=== PATIENT | female | born 2000 | race Two or more races ===

== ENCOUNTER 2023-11-03 12:46 | Outpatient (AMB) | payer MEDICAID, SELFPAY ==
--- NOTE | 2023-11-03 12:49 | MHC.OFFVIS ---
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 Patient reports she noticed this cyst in the beginning of this year. She said it was once a big sack of liquid but every time she hit it she says it went down in size so she thinks it has popped an just continues to come back. Tingling and pain if she is working and accidentally bumps the cyst, some days the tingling radiates to her finger tips and some days she says it radiates into her wrist. She says if she over uses the right hand or moves certain ways she may occasionally have discomfort. Denies past medical treatment to wrist. 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 The patient reports that this cyst fluctuates in size considerably, and also causes her significant discomfort in her right wrist. The patient reports that she has had ultrasound and MRI performed on the mass, and these have revealed that this is a ganglion cyst. Denies any surrounding erythema or ecchymosis. The patient states that she would like to have surgery to have this mass removed. Patient also reports that she does have occasional numbness and tingling in her right hand that is intermittent, not daily, and worse at night. No other acute complaints or concerns at this time. 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 Neuro: Normal sensation of the tips of all digits of the right hand at this time Good APB muscle belly firing and good finger cross Vascular: Cap refill brisk Pain: Patient reports no tenderness to palpation about the dorsal wrist ganglion ROM: Patient is able to make a closed fist and extend all digits of the right hand fully without difficulty Skin: No lacerations or abrasions. General: There is noted to be a small, approximately 1 cm in diameter mass noted on the dorsal aspect of the right wrist Non fluctuant to palpation No ecchymosis, erythema, or evidence of infection. Psych: Appears grossly normal Affect normal Attitude cooperative Assessment & Plan Assessment & Plan (1) Numbness and tingling of right hand: Code(s): R20.0 - Anesthesia of skin; R20.2 - Paresthesia of skin Category: Medical (2) Ganglion cyst of dorsum of right wrist: Code(s): M67.431 - Ganglion, right wrist Category: Medical Plan 1. Right wrist dorsal ganglion cyst Ongoing for approximately 2-3 years I educated the patient about the condition. I discussed both operative and nonoperative treatment options. The patient would like to forego needle aspiration and proceed with surgery. The risks and benefits of operative treatment were discussed with the patient and the patient wishes to proceed with surgery. These risks include, but are not limited to, risk of damage to blood vessels, nerves, tendons, infection, recurrence, incomplete relief of preoperative symptoms, persistent pain, possible need for further surgery, and the risks associated with regional blocks and/or anesthesia. Plan is to take the patient to the operating room at some point in the next few weeks for the following procedures: 1. Right dorsal wrist ganglion excision All of the preoperative paperwork including the consent was discussed today. All of the patient's questions were answered in the clinic today. The patient understands that they will be in contact with our surgical assistant to discuss scheduling their procedure. Patient denies diabetes, blood thinners, asthma, heart issues, lung issues, kidney issues, or current smoking. 2. Numbness and tingling of right hand Symptoms intermittent, not daily, worse at night At this time, patient is referred for EMG and nerve conduction study to assess the health of the nerves of the right upper extremity Patient is amenable to this plan I informed the patient that if her EMG and nerve conduction study do demonstrate carpal tunnel syndrome, this can be added onto her dorsal wrist ganglion excision and done at the same time Patient understands this, and is amenable to this idea Patient will follow-up after EMG and nerve conduction study for results review and discussion of further indicated treatment options, sooner with any acute concerns Orders: Orders NE nerve conduction velocity Today R20.0 - Anesthesia of skin, R20.2 - Paresthesia of skin NE electromyogram (EMG) Today R20.0 - Anesthesia of skin, R20.2 - Paresthesia of skin Coding Level of Care Code New Pt Level 4 (97060) Diagnoses Numbness and tingling of right hand R20.0; R20.2 Ganglion cyst of dorsum of right wrist M67.431
[2023-11-03 12:52] VITALS: BMI 25.8
== END 2023-11-03 13:26 | disposition home or self-care (01) ==
PROVIDERS: PCP Physician Assistant
DX: M67.431 Ganglion, right wrist (principal); R20.0 Anesthesia of skin; R20.2 Paresthesia of skin
CPT/HCPCS: 99204

== ENCOUNTER → 2023-11-03 12:46 | Outpatient (BNVA) | payer MEDICAID, SELFPAY | PROVIDERS: PCP Physician Assistant | DX: M67.431 Ganglion, right wrist (principal); R20.0 Anesthesia of skin; R20.2 Paresthesia of skin | CPT/HCPCS: 99212 ==

== ENCOUNTER 2023-11-24 14:59 | Outpatient (REF) | payer MEDICAID, SELFPAY ==
--- NOTE | 2023-11-24 15:09 | EMG_ITS ---
Chief complaint: Ganglion cyst, on and off numbness/pain right hand Reason for referral: Evaluate for Carpal Tunnel Syndrome Referred by: Mao HILLMAN Procedure done: Right upper extremity NCS/EMG Precautions and/or limitations: None The limb temperature was monitored continuously and remained between 32-36 degrees C during the performance of the NCS. Nerve Conduction Studies Anti Sensory Summary Table ?Stim Site NR Onset (ms) Norm Onset (ms) Peak (ms) Norm Peak (ms) O-P Amp (?V) Norm O-P Amp Site1 Site2 Delta-0 (ms) Dist (cm) Isacc (m/s) Norm Isacc (m/s) Right Median Anti Sensory (2nd Digit) Wrist ? 2.3 2.9 <3.6 48.6 >10 Wrist 2nd Digit 2.3 14.0 61 Right Radial Anti Sensory (Thumb) Forearm ? 1.4 1.8 <3.1 32.1 Forearm Thumb 1.4 0.0 Right Ulnar Anti Sensory (5th Digit) Wrist ? 2.2 2.7 <3.7 33.7 >15.0 Wrist 5th Digit 2.2 14.0 64 Motor Summary Table ?Stim Site NR Onset (ms) Norm Onset (ms) O-P Amp (mV) Norm O-P Amp iAmp (mV) Amp (1st) (%) Site1 Site2 Delta-0 (ms) Dist (cm) Isacc (m/s) Norm Isacc (m/s) Right Median Motor (Abd Poll Brev) Wrist ? 3.1 <3.9 6.0 >4.5 6.8 100.0 Elbow Wrist 4.0 23.0 58 >45 Elbow ? 7.1 7.0 7.8 116.7 Right Ulnar Motor (Abd Dig Minimi) Wrist ? 2.7 <3.0 12.7 >5 14.5 100.0 B Elbow Wrist 3.2 21.5 67 >45 B Elbow ? 5.9 9.9 11.9 78.0 A Elbow B Elbow 1.3 10.0 77 >45 A Elbow ? 7.2 9.7 11.8 76.4 EMG ?Side Muscle Nerve Root Ins Act Fibs Psw Amp Dur Poly Recrt Int Pat Comment Right 1stDorInt Ulnar C8-T1 Nml Nml Nml Nml Nml 0 Nml Complete Right FlexCarRad Median C6-7 Nml Nml Nml Nml Nml 0 Nml Complete Right Biceps Musculocut C5-6 Nml Nml Nml Nml Nml 0 Nml Complete Right Triceps Radial C6-7-8 Nml Nml Nml Nml Nml 0 Nml Complete Right Deltoid Axillary C5-6 Nml Nml Nml Nml Nml 0 Nml Complete FINDINGS: All motor and sensory nerves tested showed normal latencies, amplitudes and conduction velocities. Concentric needle EMG was performed in selected muscles of the right upper extremity. Study did not reveal signs of electric abnormalities as shown in the table above. IMPRESSION: 1. This is a normal study. 2. There is no electrodiagnostic evidence for median neuropathy, ulnar neuropathy, brachial plexopathy, or cervical radiculopathy. Thank you for your kind referral. Rose Bergeron MD, BERTIN Board Certified, [place] Board of Physical Medicine and Rehabilitation (ABPMR) Board Certified, [place] Board of Electrodiagnostic Medicine (ABEM) CODIN [id number] MTDD
== END 2023-11-24 15:00 | disposition home or self-care (01) ==
LOC: HO.NEURO 14:59
PROVIDERS: PCP Physician Assistant
DX: R20.0 Anesthesia of skin (principal); R20.2 Paresthesia of skin
CPT/HCPCS: 95886; 95909

== ENCOUNTER → 2023-11-24 15:09 | Outpatient (BNV) | payer MEDICAID, SELFPAY | PROVIDERS: PCP Physician Assistant; Visit Provider Physical Medicine & Rehabilitation | DX: R20.0 Anesthesia of skin (principal); R20.2 Paresthesia of skin | CPT/HCPCS: 95886; 95909 ==

== ENCOUNTER 2024-01-10 08:45 | Outpatient (AMB) | payer MEDICAID, SELFPAY ==
--- NOTE | 2024-01-10 08:47 | A.OFFVIS_ITS ---
Intake Visit Reasons: Preop RT dorsal wrist ganglion exc 01/15/24 AR Intake Note: Maria R is a 23 year old right hand dominant female who presents today for a pre operative visit for her right dorsal wrist ganglion excision DOS: 01/15/2024 w/ Dr Jurado. Patient would also like to review her EMG done on 11/24/2023. Allergies No Known Allergies Allergy (Verified 01/10/24 08:47) HPI HPI Preop RT dorsal wrist ganglion exc 01/15/24 AR: Details: Patient is a 23-year-old female who presents for preoperative evaluation status post right dorsal wrist ganglion excision, DOS 01/15/2024. Of note, the patient did also plan an EMG and nerve conduction study to assess numbness and tingling of the bilateral hands, but this was performed and found to be negative. Patient states she would still like to proceed with operative intervention for her dorsal wrist ganglion, as she does find it very bothersome. No other acute complaints or concerns at this time. 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 Neuro: Normal sensation of the tips of all digits of the right hand at this time Good APB muscle belly firing and good finger cross Vascular: Cap refill brisk Pain: Patient reports no tenderness to palpation about the dorsal wrist ganglion ROM: Patient is able to make a closed fist and extend all digits of the right hand fully without difficulty Skin: No lacerations or abrasions. General: There is noted to be a small, approximately 1 cm in diameter mass noted on the dorsal aspect of the right wrist Non fluctuant to palpation No ecchymosis, erythema, or evidence of infection. Psych: Appears grossly normal Affect normal Attitude cooperative Assessment & Plan Assessment & Plan (1) Numbness and tingling of right hand: Code(s): R20.0 - Anesthesia of skin; R20.2 - Paresthesia of skin Category: Medical (2) Ganglion cyst of dorsum of right wrist: Code(s): M67.431 - Ganglion, right wrist Category: Medical Plan 1. Right wrist dorsal ganglion cyst Ongoing for approximately 2-3 years I educated the patient about the condition. I discussed both operative and nonoperative treatment options. The patient would like to forego needle aspiration and proceed with surgery. The risks and benefits of operative treatment were discussed with the patient and the patient wishes to proceed with surgery. These risks include, but are not limited to, risk of damage to blood vessels, nerves, tendons, infection, recurrence, incomplete relief of preoperative symptoms, persistent pain, possible need for further surgery, and the risks associated with regional blocks and/or anesthesia. Plan is to take the patient to the operating room at some point in the next few weeks for the following procedures: 1. Right dorsal wrist ganglion excision All of the preoperative paperwork including the consent was discussed today. All of the patient's questions were answered in the clinic today. The patient understands that they will be in contact with our surgical scrub tech to discuss scheduling their procedure. Patient denies diabetes, blood thinners, asthma, heart issues, lung issues, kidney issues, or current smoking. 2. Numbness and tingling of right hand Symptoms intermittent, not daily, worse at night At this time, patient is referred for EMG and nerve conduction study to assess the health of the nerves of the right upper extremity Patient is amenable to this plan I informed the patient that if her EMG and nerve conduction study do demonstrate carpal tunnel syndrome, this can be added onto her dorsal wrist ganglion excision and done at the same time Patient understands this, and is amenable to this idea Patient will follow-up after EMG and nerve conduction study for results review and discussion of further indicated treatment options, sooner with any acute concerns Coding Level of Care Code Est Pt Level 4 (11040) Diagnoses Numbness and tingling of right hand R20.0; R20.2 Ganglion cyst of dorsum of right wrist M67.431
== END 2024-01-10 08:58 | disposition home or self-care (01) ==
PROVIDERS: PCP Physician Assistant
DX: R20.0 Anesthesia of skin (principal); R20.2 Paresthesia of skin; M67.431 Ganglion, right wrist
CPT/HCPCS: 99214

== ENCOUNTER → 2024-01-10 08:45 | Outpatient (BNVA) | payer MEDICAID, SELFPAY | PROVIDERS: PCP Physician Assistant | DX: M67.431 Ganglion, right wrist (principal); R20.0 Anesthesia of skin; R20.2 Paresthesia of skin | CPT/HCPCS: 99212 ==

== ENCOUNTER 2024-01-22 12:31 | Day surgery (SDC) | payer MEDICAID, SELFPAY ==
[2024-01-11 11:28] VITALS: BMI 28.2
[2024-01-22] VITALS (7 sets, daily range): BP systolic 87–105; BP diastolic 44–72; PULSE 53–89; RESP 16–20; TEMP 36.1–36.3; O2SAT 98–100; BMI 28.3
[2024-01-22 13:16] LABS: UPreg QC Valid YES; Urine Pregnancy NEGATIVE (NEGATIVE)
[2024-01-22] MEDS: Lactated Ringers 1,000 ML 100 ML IVCONT (13:16)
--- NOTE | 2024-01-22 14:20 | P.CONAN_ITS ---
Documented by User: Eileen Hernandez NP 01/12/24 11:28 HPI - Anesthesia Eval Consult details Narrative: 23yo F for Right Excision Dorsal wrist Ganglion PMFSH Active Problems Active Problems: All Active Problems Ganglion cyst of dorsum of right wrist (Acute) Numbness and tingling of right hand (Acute) Past Medical History Medical History (Updated 01/11/24 @ 11:26 by Benita Claderon RN) Irregular periods/menstrual cycles Depression Bipolar 1 disorder ADHD Keratoconus of both eyes Anxiety Surgical History Surgical History (Updated 01/22/24 @ 13:06 by Caludia Hernández, RN) No pertinent past surgical history Social History Social History (Updated 11/03/23 @ 12:53 by DIANNA Quick) Alcohol intake: current Alcohol intake frequency: does not drink Patient Tobacco Use Status: Never used Tobacco Substance Use Type: Marijuana Have you been hit, kicked, punched, or otherwise hurt by someone within the past year? 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 Daily marijuana. PMFSH Past Medical History Medical History (Updated 01/11/24 @ 11:26 by Benita Calderon RN) Irregular periods/menstrual cycles Depression Bipolar 1 disorder ADHD Keratoconus of both eyes Anxiety Family History Family history of problems with anesthesia: No Surgical History Surgical History (Updated 01/22/24 @ 13:06 by Claudia Hernández RN) No pertinent past surgical history History of Problems with Anesthesia: No Social History Social History (Updated 11/03/23 @ 12:53 by DIANNA Quick) Alcohol intake: current Alcohol intake frequency: does not drink Patient Tobacco Use Status: Never used Tobacco Substance Use Type: Marijuana Have you been hit, kicked, punched, or otherwise hurt by someone within the past year? 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 Meds Allergies Allergy/AdvReac Type Severity Reaction Status Date / Time No Known Allergies Allergy Verified 01/10/24 08:47 Exam Exam Date and Time: 01/22/24 1420 Height,Weight and Vital Signs: Height 5 ft 6 in Weight 79.379 kg Vital Signs Temperature 97.4 F 01/22/24 13:03 Pulse Rate 89 01/22/24 13:03 Respiratory Rate 20 01/22/24 13:03 Blood Pressure 105/72 01/22/24 13:03 Pulse Oximetry 98 01/22/24 13:03 Oxygen Delivery Method Room Air 01/22/24 13:03 Temperature 97.4 F 01/22/24 13:03 Pulse Rate 89 01/22/24 13:03 Respiratory Rate 20 01/22/24 13:03 Blood Pressure 105/72 01/22/24 13:03 Pulse Oximetry 98 01/22/24 13:03 Oxygen Delivery Method Room Air 01/22/24 13:03 Airway Mallampati Class: I TM Dist: >3cm Neck ROM: Full Loose/Missing/Broken Teeth: No (patient denies any loose or broken teeth) Heart: S1S2 Lungs: CTAB Assessment and Plan Assessment Anesthesia Assessment: Anesthesia Plan Discussed and Chart Reviewed Final Anesthetic Review Family History of Problems with Anesthesia: No History of Problems with Anesthesia: No NPO: Yes ASA Class: II Final Preanesthetic Review: No Changes in Pt Med Stat, Meds/Allgs Chart Reviewed, Consent Obtained/Reviewed and Anes Risks/Benef Reviewed Patient Risk: Low Procedure Risk: Low Anesthetic Plan Anesthetic Plan: GA and Agree w/ Assess. and Plan Disposition: Standard PACU
--- NOTE | 2024-01-22 14:21 | P.OP_ITS ---
Operative Note Operative Note Date of Service: 01/22/24 Narrative: Operative Note Narrative: Preop diagnosis: 1. Right dorsal wrist ganglion Postop diagnosis: Same Procedure: 1. Right dorsal wrist ganglion excisional biopsy Surgeon: Priscila Jurado MD Respiratory Therapy Manager: None Anesthesia: General Findings: 1. Right dorsal wrist ganglion approximately 1.0 cm diameter, filled with clear viscous fluid consistent with a ganglion Tourniquet time: 12 minutes EBL: 5.0 ml Specimen: dorsal wrist ganglion Drains: None Complications: None Disposition: Brought to the recovery room in stable condition Plan: Follow-up in 10-14 days for wound check, suture removal and to check pathology Indications: The patient is 23 years old with a right dorsal wrist ganglion that has been unresponsive to nonoperative management. The risks and benefits of operative treatment, including but not limited to risk of damage to blood vessels, nerves, tendons, infection, recurrence, persistent pain or numbness, or need for further surgery were discussed with the patient and they wished to proceed with surgery. Procedure: Once consent was obtained patient was brought back to the operating suite and placed in the operating table in a supine position. Perioperative antibiotics and anesthesia was administered by the anesthesia team. A tourniquet was applied to the proximal aspect of the right upper extremity and the limb was prepped and draped in a standard surgical fashion. The limb was elevated exsanguinated with Esmarch bandage and the tourniquet inflated to 250 mm of mercury for a total tourniquet time of 12 minutes. A 2 cm longitudinal incision was made over the dorsal aspect of the right dorsal wrist ganglion. Ganglion was located over the dorsal aspect of the right wrist. The incision was made with a #15 blade through the skin to the subcutaneous tissues. Tenotomy scissors were then used to carefully dissect down through the subcutaneous layer to the dorsal wrist ganglion. It measured approximately 12 cm in diameter and was filled with clear viscous fluid consistent with a ganglion. It was carefully mobilized from the surrounding soft tissues using tenotomy and iris scissors. It's stalk passed through the interval between the ECRB and 4th dorsal compartment tendons. The Bovie was used to cauterize the stalk to reduce risk of recurrence., and the ganglion was cut free and removed to the back table to be sent for histopathologic review. No further masses were identified. At this point the tourniquet was deflated and hemostasis obtained with a brief period of local pressure and monopolar electrocautery. Wound was irrigated with normal saline. The subcutaneous layer was closed with some 4-0 Vicryl suture, and the skin edges were reapproximated with some 5-0 Prolene suture. The wound was infiltrated with some 0.5% plain ropivacaine for postop pain control and a sterile dressing was applied. The patient appears to have tolerated the procedure well and with no complications. All digits were well vascularized conclusion of the case.
--- NOTE | 2024-01-22 14:21 | MHC.SHP ---
Pre-Procedural Eval Section A - 24 Hr Update-Section A only Date of Service: 01/22/24 The patient is an INPATIENT: No Changes since office visit: No Cold of Flu in the past 2 weeks, No New Medical Problems, No Changes in Medication and No Patient answered all questions The patient has been examined within 24 hours of the surgical procedure. The History & Physical has been completed within 30 days and I have reviewed it.: Yes Section B - Complete if H&P > 30 days Chief Complaint: Ganglion, right wrist Allergies: Allergies Allergy/AdvReac Type Severity Reaction Status Date / Time No Known Allergies Allergy Verified 01/10/24 08:47 Plan I have reviewed the history and physical and performed a pertinent physical examination on my patient. No changes have occurred unless specified. Time Spent With Patient Time: Total time managing care of this patient today ____ minutes.
== END 2024-01-22 16:40 | disposition home or self-care (01) ==
PROVIDERS: Nurse Practitioner; PCP Physician Assistant; Visit Provider Orthopaedic Surgery
PROC: (CPT 25111; principal; 2024-01-22 14:10)
DX: M67.431 Ganglion, right wrist (principal); R20.0 Anesthesia of skin; R20.2 Paresthesia of skin
CPT/HCPCS: 25111; 81025; 88304; J0131; J0690; J1100; J1885; J2003; J2004; J2250; J2405; J2704; J3010

== ENCOUNTER → 2024-01-22 12:31 | Outpatient (BNV) | payer MEDICAID, SELFPAY | PROVIDERS: PCP Physician Assistant; Visit Provider Orthopaedic Surgery | DX: M67.431 Ganglion, right wrist (principal) | CPT/HCPCS: 26160 ==

== ENCOUNTER 2024-02-06 12:48 | Outpatient (AMB) | payer MEDICAID, SELFPAY ==
--- NOTE | 2024-02-06 12:54 | A.OFFVIS_ITS ---
Intake Visit Reasons: PO RT dorsal wrist ganglion exc 01/22/24 AR Intake Note: Maria R is a 23 year old right hand dominant female presents today for her post operative visit for right dorsal wrist ganglion exc 01/22/[address] Jurado. Patient reports that she is doing very well. She has some sporadic dennis n, but this resolves on its own. Denies numbness and tingling. Sutures removed and Steris applied Allergies No Known Allergies Allergy (Verified 02/06/24 13:05) HPI HPI PO RT dorsal wrist ganglion exc 01/22/24 AR: Details: Maria R is a 23 year old right hand dominant female presents today for her post operative visit for right dorsal wrist ganglion exc 01/22/[address] Jurado. Patient reports that she is doing very well. She has some sporadic pain, but this resolves on its own. Denies numbness and tingling. 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 Neuro: Normal sensation of the tips of all digits of the right hand at this time Vascular: Cap refill brisk Pain: No tenderness to palpation about the incision site on the dorsal right wrist Patient does report some discomfort in the dorsal wrist with wrist flexion ROM: Patient is able to flex extend all digits of the right hand fully and without difficulty Patient is able to flex the wrist to approximately 30-40 degrees and extend the wrist to approximately 30 degrees, but reports discomfort and stiffness beyond this Skin: Well approximated and well healing incision site noted on the dorsal aspect of the patient's right wrist General: No ecchymosis, erythema, or evidence of infection. Psych: Appears grossly normal Affect normal Attitude cooperative Assessment & Plan Assessment & Plan (1) Ganglion cyst of dorsum of right wrist: Code(s): M67.431 - Ganglion, right wrist Category: Medical Plan 1. Dorsal wrist ganglion of right wrist status post excision DOS 01/22/2024 Patient appears to be recovering well postoperatively Patient was educated about the typical recovery course Time, patient is informed that she will require no acute follow-up with us, as she appears to be recovering very well from her surgery Patient is educated that if she experiences recurrence of her symptoms, she should call us for reassessment Patient was amenable to this plan Patient will follow-up as needed with any acute concerns Coding Level of Care Code Global (01337) Diagnoses Ganglion cyst of dorsum of right wrist M67.431
== END 2024-02-06 13:12 | disposition home or self-care (01) ==
PROVIDERS: PCP Physician Assistant
DX: M67.431 Ganglion, right wrist (principal)
CPT/HCPCS: 99024

== ENCOUNTER → 2024-02-06 12:48 | Outpatient (BNVA) | payer MEDICAID, SELFPAY | PROVIDERS: PCP Physician Assistant | DX: M67.431 Ganglion, right wrist (principal) | CPT/HCPCS: 99212 ==